=== PATIENT | male | born 1975 | race Caucasian/White ===

== ENCOUNTER 2024-03-05 20:59 | Emergency (ER) | payer SELFPAY ==
[2024-03-05] VITALS (23 sets, daily range): BP systolic 146–164; BP diastolic 102–110; PULSE 95–141; O2SAT 9–100; BMI 27.7
--- NOTE | 2024-03-05 21:17 | ECG_ITS ---
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
--- NOTE | 2024-03-05 21:19 | ED_ITS ---
Documented by User: NATALY Dee 03/05/24 21:29 HPI HPI - General Adult General Chief complaint: Shortness of Breath/Dyspnea Stated complaint: SHORTNESS OF BREATH Time Seen by Provider: 03/05/24 21:01 History of Present Illness HPI narrative: Is a 48-year-old male who presents to the emergency department for worsening shortness of breath that began abruptly about 1 hour ago. He states he was watching a movie when he felt profoundly short of breath and like he cannot catch his breath. He has had a mild cough and has felt mildly short of breath throughout the day. No fevers. He denies chest pain, vomiting, diarrhea, p eripheral edema. He denies any history of heart or lung problems. He states he occasionally smokes cigarettes and occasionally smokes marijuana. He has not brought up any sputum or hemoptysis. Related Data Allergies Allergy/AdvReac Type Severity Reaction Status Date / Time No Known Drug Allergies Allergy Verified 03/05/24 21:24 Opioid HPI Opioid Management Most Recent Opioid Data: No Data to Display Review of Systems ROS Constitutional Denies: fever or chills Ears, nose, mouth, and throat Reports: nasal congestion; Denies: throat pain Cardiovascular Denies: chest pain Respiratory Reports: shortness of breath and cough Gastrointestinal Denies: nausea, vomiting or diarrhea Musculoskeletal Denies: back pain Integumentary/Breast Denies: rash Hematologic/Lymphatic Denies: easy bruising or easy bleeding Exam Narrative Exam Narrative: Gen.: Awake, alert, Hyperventilating Head: Normocephalic, atraumatic ENT: Moist mucous membranes Respiratory: No respiratory distress, lungs clear bilaterally; No wheezing or rhonchi Cardio: Tachycardic, regular Gastrointestinal: Abdomen is soft, nondistended and nontender to palpation Extremities: Moves extremities equally, no pedal edema Psych: Normal mood and affect Neuro: No focal neuro deficit Skin: Warm, dry, intact Constitutional Vital Signs, click to edit/add: Last Vital Signs Pulse 122 H 03/05/24 21:46 Resp 22 H 03/05/24 21:46 BP 164/103 H 03/05/24 21:12 Pulse Ox 99 03/05/24 21:32 O2 Del Method Room Air 03/05/24 21:24 O2 Flow Rate 4 03/05/24 21:32 Course Vital Signs Vital signs: Vital Signs Pulse Rate 139 H 03/05/24 21:12 Respiratory Rate 32 H 03/05/24 21:12 Blood Pressure 164/103 H 03/05/24 21:12 Pulse Oximetry 99 03/05/24 21:12 Oxygen Delivery Method Room Air 03/05/24 21:12 Pulse Rate 122 H 03/05/24 21:46 Respiratory Rate 22 H 03/05/24 21:46 Blood Pressure 164/103 H 03/05/24 21:12 Pulse Oximetry 99 03/05/24 21:32 Oxygen Delivery Method Room Air 03/05/24 21:24 Oxygen Delivery Flow Rate 4 03/05/24 21:32 Medical Decision Making MDM Narrative Medical decision making narrative: 2127: Patient noted to be hyperventilating, tachypnea noted on exam with no wheezing and normal oxygen saturation. He was noted to have cramping of his hands and reported tingling all over. He was placed on a nasal cannula for comfort and instructed to slow his breathing. Ativan, IV fluids, Solu-Medrol and breathing treatment ordered in addition to a sepsis lab set. Based on the patient's clinical presentation, he is sent for CT angio of the chest. Case is turned over at this time to attending physician for disposition. Medical Records Medical records reviewed: Yes I reviewed the patient's medical records Lab Data Lab results reviewed: Yes I reviewed the patient's lab results Labs: Lab Results 03/05/24 03/05/24 03/05/24 Range/Units 21:25 21:42 21:48 WBC 8.6 (4.0-11.0) 10^3/uL RBC 5.36 (4.70-6.10) 10^6/uL Hgb 16.6 (14.0-18.0) g/dL Hct 48.1 (42.0-54.0) % MCV 89.7 (80.0-94.0) fL MCH 31.0 (25.9-34.0) pg MCHC 34.5 (29.9-35.2) g/dL RDW 12.2 (11.0-15.0) % Plt Count 338 (150-450) 10^3/uL MPV 9.9 (9.5-13.5) fL Neut % (Auto) 50.3 (43.0-75.0) % Lymph % (Auto) 37.2 (20.5-60.0) % King % (Auto) 10.7 (1.7-12.0) % Eos % (Auto) 1.4 (0.9-7.0) % Baso % (Auto) 0.3 (0.2-2.0) % Neut # (Auto) 4.3 (1.4-6.5) 10^3/uL Lymph # (Auto) 3.2 (1.2-3.8) 10^3/uL King # (Auto) 0.9 H (0.3-0.8) 10^3/uL Eos # (Auto) 0.1 (0.0-0.7) 10^3/uL Baso # (Auto) 0.0 (0.0-0.1) 10^3/uL Abs Immat Gran (auto) 0.01 (0.00-0.03) 10^3/uL Imm/Tot Granulo (auto) 0.1 (0.0-0.5) % PT 10.2 (9.0-11.6) sec INR 0.96 VBG pH 7.692 H (7.330-7.430) VBG pCO2 16.1 L (40.0-52.0) mmHg Sodium 137 (136-145) mmol/L Potassium 3.7 (3.5-5.1) mmol/L Chloride 98 (98-107) mmol/L Carbon Dioxide 22.7 (21.0-32.0) mmol/L Anion Gap 20.0 BUN 5.0 L (7.0-18.0) mg/dL Creatinine 0.90 (0.70-1.30) mg/dL Est GFR ( Amer) >60 (>=60) Est GFR (Non-Af Amer) >60 (>=60) BUN/Creatinine Ratio 5.6 Glucose 109 H (74-106) mg/dL Lactate 5.8 H* (0.4-2.0) mmol/L Calcium 9.8 (8.5-10.1) mg/dL Magnesium 1.9 (1.8-2.4) mg/dL Total Bilirubin 0.7 (0.2-1.0) mg/dL AST 101 H (15-37) U/L ALT 113 H (16-63) U/L Alkaline Phosphatase 83 (46-116) U/L Troponin I High Sens 8.6 (4.0-76.1) pg/mL NT-Pro-B Natriuret Pep 24.0 (<=450.0) pg/mL Total Protein 8.5 H (6.4-8.2) g/dL Albumin 4.2 (3.4-5.0) g/dL Globulin 4.3 g/dL Albumin/Globulin Ratio 1.0 Procalcitonin <0.05 (0.00-0.50) ng/mL TSH 2.658 (0.358-3.740) uIU/mL Adenovirus (PCR) Not detected (NOT DETECTE) B. pertussis DNA (PCR) Not detected (NOT DETECTE) B.parapertussis DNA PCR Not detected (NOT DETECTE) C. pneumoniae DNA (PCR) Not detected (NOT DETECTE) Coronavirus Type OC43 Not detected (NOT DETECTE) Coronavirus Type HKU1 Not detected (NOT DETECTE) Coronavirus Type 229E Not detected (NOT DETECTE) Coronavirus Type NL63 Not detected (NOT DETECTE) Human Metapneumovir PCR Not detected (NOT DETECTE) Influenza Type A (PCR) Not detected (NOT DETECTE) Influenza Type B (PCR) Not detected (NOT DETECTE) M. pneumoniae (PCR) Not detected (NOT DETECTE) Parainfluenza PCR Not detected (NOT DETECTE) Parainfluenza 2 (PCR) Not detected (NOT DETECTE) Parainfluenza 3 (PCR) Not detected (NOT DETECTE) Parainfluenza 4 (PCR) Not detected (NOT DETECTE) RSV (RT-PCR) Not detected (NOT DETECTE) Entero/Rhino (PCR) Not detected (NOT DETECTE) SARS-CoV-2 (PCR) Not detected (NOT DETECTE) ECG Data Attestation: I personally reviewed and interpreted this ECG as follows: (Sinus tachycardia at a rate of 133, no acute ST elevation or ectopy. EKG reviewed by attending physician) Discharge Plan Discharge Stand Alone Forms: Portal Instructions Chief Complaint: Shortness of Breath/Dyspnea Clinical Impression: Acute dyspnea, Pulmonary nodule, Acute hyperventilation Patient Disposition: Home, Self-Care Time of Disposition Decision: 00:45 Condition: Good Print Language: Andorran Instructions: Asthma (ED), Hyperventilation (ED), Dyspnea (ED), Pulmonary Nodules (ED) Referrals: Physician,Non-Staff, [Primary Care Provider] - 1 week Documented by User: Ita Sanchez MD 03/06/24 00:45 HPI HPI - General Adult General Chief complaint: Shortness of Breath/Dyspnea Stated complaint: SHORTNESS OF BREATH Time Seen by Provider: 03/05/24 21:01 History of Present Illness HPI narrative: Is a 48-year-old male who presents to the emergency department for worsening shortness of breath that began abruptly about 1 hour ago. He states he was watching a movie when he felt profoundly short of breath and like he cannot catch his breath. He has had a mild cough and has felt mildly short of breath throughout the day. No fevers. He denies chest pain, vomiting, diarrhea, peripheral edema. He denies any history of heart or lung problems. He states he occasionally smokes cigarettes and occasionally smokes marijuana. He has not brought up any sputum or hemoptysis. Upon arrival he was extremely anxious with carpopedal spasm and tachycardia. An IV was placed and he was medicated with IV fluids, Toradol, Ativan, Solu-Medrol and given a breathing treatment. On reevaluation he was resting comfortably. His pulse has improved and at the time of this dictation is at 95. CT angio of the chest was ordered and shows a small nodule in the right lower lobe but otherwise no acute findings. This was discussed with the patient who verbalizes understanding but states he still feels like he cannot get a complete breath. He will be given an additional breathing treatment. I anticipate he will be able to be discharged home. I did discuss smoking cessation with him. He will be discharged home with a Medrol Dosepak and albuterol inhaler prescriptions. Related Data Allergies Allergy/AdvReac Type Severity Reaction Status Date / Time No Known Drug Allergies Allergy Verified 03/05/24 21:24 Opioid HPI Opioid Management Most Recent Opioid Data: No Data to Display Exam Constitutional Vital Signs, click to edit/add: Last Vital Signs Pulse 122 H 03/05/24 21:46 Resp 22 H 03/05/24 21:46 BP 164/103 H 03/05/24 21:12 Pulse Ox 99 03/05/24 21:32 O2 Del Method Room Air 03/05/24 21:24 O2 Flow Rate 4 03/05/24 21:32 Course Vital Signs Vital signs: Vital Signs Pulse Rate 139 H 03/05/24 21:12 Respiratory Rate 32 H 03/05/24 21:12 Blood Pressure 164/103 H 03/05/24 21:12 Pulse Oximetry 99 03/05/24 21:12 Oxygen Delivery Method Room Air 03/05/24 21:12 Pulse Rate 122 H 03/05/24 21:46 Respiratory Rate 22 H 03/05/24 21:46 Blood Pressure 164/103 H 03/05/24 21:12 Pulse Oximetry 99 03/05/24 21:32 Oxygen Delivery Method Room Air 03/05/24 21:24 Oxygen Delivery Flow Rate 4 03/05/24 21:32 Medical Decision Making MDM Narrative Medical decision making narrative: 2127: Patient noted to be hyperventilating, tachypnea noted on exam with no wheezing and normal oxygen saturation. He was noted to have cramping of his hands and reported tingling all over. He was placed on a nasal cannula for comfort and instructed to slow his breathing. Ativan, IV fluids, Solu-Medrol and breathing treatment ordered in addition to a sepsis lab set. Based on the patient's clinical presentation, he is sent for CT angio of the chest. Case is turned over at this time to attending physician for disposition. Medical Records Medical records narrative: [place] [address] CT Scan Report Signed Patient: KEL MCDONNELL MR#: [id number] : 1975 Acct:[id number] Age/Sex: 48 / M ADM Date: 03/05/24 Loc: ER Attending Dr: Ordering Physician: Mavis Dunham Date of Service: 03/05/24 Procedure(s): CT angio chest Accession Number(s): [id number] cc: Physician,Non-Staff M.D.~ [facility] [place] [address] Patient Name: KEL MCDONNELL MRN: [id number] date: 1975 Sex: M Assigned Patient Location: ER Current Patient Location: ER Accession/Order Number: [id number] Exam Date: 03/05/2024 22:55 Report Date: 03/06/2024 00:08 At the request of: MAVIS DUNHAM Procedure: CT angio chest EXAM: CT angio chest HISTORY: shortness of breath , congestion. Reported history of asthma. COMPARISON: Chest x-ray 07/08/2021 TECHNIQUE: Multiple axial views CTA chest angiogram chest performed after administration of 100 cc Omnipaque 350 IV contrast. Coronal sagittal reformats performed. MIPS and/or similar series performed. 3-D reconstruction of the vasculature performed. FINDINGS: No evidence for acute pulmonary embolism, thoracic aortic aneurysm, or thoracic aortic dissection. No enlarged heart size or large pericardial effusion. Central airway is patent. 8 mm irregular nodular opacity at the posterior right lower lobe (image 50 series 5). Mild mosaic attenuation of the bilateral lower lungs. No lobar lung consolidation, large pleural effusion, or pneumothorax. Small hiatal hernia. Severe hepatic steatosis. No acute bony abnormality. CT/CT angio chest IMPRESSION: No evidence for acute pulmonary embolism, thoracic aortic aneurysm, or thoracic aortic dissection. 8 mm irregular nodular lung opacity at the posterior right lower lobe (image 50 series 5). Finding reflects an irregular nodular inflammatory lung nodule versus an irregular neoplastic pulmonary nodule. Recommend short interval 2-[address] follow-up. Mild mosaic attenuation of the bilateral lower lungs reflecting sequela small reactive airway inflammation and/or airway trapping Severe hepatic steatosis. Electronically authenticated by: GUANAKITO LASSITER Date: 03/06/2024 00:08 Lab Data Labs: Lab Results 03/05/24 03/05/24 03/05/24 Range/Units 21:25 21:42 21:48 WBC 8.6 (4.0-11.0) 10^3/uL RBC 5.36 (4.70-6.10) 10^6/uL Hgb 16.6 (14.0-18.0) g/dL Hct 48.1 (42.0-54.0) % MCV 89.7 (80.0-94.0) fL MCH 31.0 (25.9-34.0) pg MCHC 34.5 (29.9-35.2) g/dL RDW 12.2 (11.0-15.0) % Plt Count 338 (150-450) 10^3/uL MPV 9.9 (9.5-13.5) fL Neut % (Auto) 50.3 (43.0-75.0) % Lymph % (Auto) 37.2 (20.5-60.0) % King % (Auto) 10.7 (1.7-12.0) % Eos % (Auto) 1.4 (0.9-7.0) % Baso % (Auto) 0.3 (0.2-2.0) % Neut # (Auto) 4.3 (1.4-6.5) 10^3/uL Lymph # (Auto) 3.2 (1.2-3.8) 10^3/uL King # (Auto) 0.9 H (0.3-0.8) 10^3/uL Eos # (Auto) 0.1 (0.0-0.7) 10^3/uL Baso # (Auto) 0.0 (0.0-0.1) 10^3/uL Abs Immat Gran (auto) 0.01 (0.00-0.03) 10^3/uL Imm/Tot Granulo (auto) 0.1 (0.0-0.5) % PT 10.2 (9.0-11.6) sec INR 0.96 VBG pH 7.692 H (7.330-7.430) VBG pCO2 16.1 L (40.0-52.0) mmHg Sodium 137 (136-145) mmol/L Potassium 3.7 (3.5-5.1) mmol/L Chloride 98 (98-107) mmol/L Carbon Dioxide 22.7 (21.0-32.0) mmol/L Anion Gap 20.0 BUN 5.0 L (7.0-18.0) mg/dL Creatinine 0.90 (0.70-1.30) mg/dL Est GFR ( Amer) >60 (>=60) Est GFR (Non-Af Amer) >60 (>=60) BUN/Creatinine Ratio 5.6 Glucose 109 H (74-106) mg/dL Lactate 5.8 H* (0.4-2.0) mmol/L Calcium 9.8 (8.5-10.1) mg/dL Magnesium 1.9 (1.8-2.4) mg/dL Total Bilirubin 0.7 (0.2-1.0) mg/dL AST 101 H (15-37) U/L ALT 113 H (16-63) U/L Alkaline Phosphatase 83 (46-116) U/L Troponin I High Sens 8.6 (4.0-76.1) pg/mL NT-Pro-B Natriuret Pep 24.0 (<=450.0) pg/mL Total Protein 8.5 H (6.4-8.2) g/dL Albumin 4.2 (3.4-5.0) g/dL Globulin 4.3 g/dL Albumin/Globulin Ratio 1.0 Procalcitonin <0.05 (0.00-0.50) ng/mL TSH 2.658 (0.358-3.740) uIU/mL Adenovirus (PCR) Not detected (NOT DETECTE) B. pertussis DNA (PCR) Not detected (NOT DETECTE) B.parapertussis DNA PCR Not detected (NOT DETECTE) C. pneumoniae DNA (PCR) Not detected (NOT DETECTE) Coronavirus Type OC43 Not detected (NOT DETECTE) Coronavirus Type HKU1 Not detected (NOT DETECTE) Coronavirus Type 229E Not detected (NOT DETECTE) Coronavirus Type NL63 Not detected (NOT DETECTE) Human Metapneumovir PCR Not detected (NOT DETECTE) Influenza Type A (PCR) Not detected (NOT DETECTE) Influenza Type B (PCR) Not detected (NOT DETECTE) M. pneumoniae (PCR) Not detected (NOT DETECTE) Parainfluenza PCR Not detected (NOT DETECTE) Parainfluenza 2 (PCR) Not detected (NOT DETECTE) Parainfluenza 3 (PCR) Not detected (NOT DETECTE) Parainfluenza 4 (PCR) Not detected (NOT DETECTE) RSV (RT-PCR) Not detected (NOT DETECTE) Entero/Rhino (PCR) Not detected (NOT DETECTE) SARS-CoV-2 (PCR) Not detected (NOT DETECTE) Discharge Plan Discharge Stand Alone Forms: Portal Instructions Chief Complaint: Shortness of Breath/Dyspnea Clinical Impression: Acute dyspnea, Pulmonary nodule, Acute hyperventilation Patient Disposition: Home, Self-Care Time of Disposition Decision: 00:45 Condition: Good Print Language: Andorran Instructions: Asthma (ED), Hyperventilation (ED), Dyspnea (ED), Pulmonary Nodules (ED) Referrals: Physician,Non-Staff, MD [Primary Care Provider] - 1 week
[2024-03-05 21:31] LABS: Basophils Percent Auto 0.3 % (0.2-2.0); Eosinophils Absolute Auto 0.1 10^3/uL (0.0-0.7); Eosinophils Percent Auto 1.4 % (0.9-7.0); Hematocrit 48.1 % (42.0-54.0); Hemoglobin 16.6 g/dL (14.0-18.0); Immature Granulocytes Abs Auto 0.01 10^3/uL (0.00-0.03); Immature Granulocytes Pct Auto 0.1 % (0.0-0.5); Lymphocytes Absolute Auto 3.2 10^3/uL (1.2-3.8); Lymphocytes Percent Auto 37.2 % (20.5-60.0); Mean Corpuscular HGB Conc 34.5 g/dL (29.9-35.2); Mean Corpuscular Volume 89.7 fL (80.0-94.0); Mean Platelet Volume 9.9 fL (9.5-13.5); Monocytes Absolute Auto 0.9 10^3/uL (0.3-0.8); Monocytes Percent Auto 10.7 % (1.7-12.0); Neutrophils Absolute Auto 4.3 10^3/uL (1.4-6.5); Neutrophils Percent Auto 50.3 % (43.0-75.0); Platelet Count 338 10^3/uL (150-450); Red Blood Count 5.36 10^6/uL (4.70-6.10); Red Cell Distribution Width 12.2 % (11.0-15.0); White Blood Count 8.6 10^3/uL (4.0-11.0)
[2024-03-05] MEDS: LORAZEPAM 2 MG/ML VIAL 1 MG IV (21:35)
[2024-03-05] MEDS: ALBUTEROL SULFATE 2.5 MG/3 ML VIAL NEB IH (21:36)
[2024-03-05] MEDS: 0.9 % SODIUM CHLORIDE 1,000 ML 1000 ML IV (21:42)
[2024-03-05] MEDS: METHYLPREDNISOLONE SOD SUCC PF 125 MG/2 ML VIAL IVP (21:42)
[2024-03-05 21:45] LABS: INR 0.96; Prothrombin Time 10.2 sec (9.0-11.6)
[2024-03-05 21:53] LABS: Lactate/Lactic Acid 5.8 mmol/L (0.4-2.0)
[2024-03-05 21:57] LABS: Alanine Aminotransferase 113 U/L (16-63); Albumin Level 4.2 g/dL (3.4-5.0); Alkaline Phosphatase 83 U/L (46-116); Aspartate Amino Transferase 101 U/L (15-37); BUN Creatinine Ratio 5.6; Bilirubin Total 0.7 mg/dL (0.2-1.0); Calcium 9.8 mg/dL (8.5-10.1); Carbon Dioxide 22.7 mmol/L (21.0-32.0); Chloride 98 mmol/L (98-107); Estimated GFR (African America >60 (>=60); Estimated GFR (Non-African Ame >60 (>=60); Globulin 4.3 g/dL; Glucose 109 mg/dL (74-106); Magnesium 1.9 mg/dL (1.8-2.4); Potassium 3.7 mmol/L (3.5-5.1); Sodium 137 mmol/L (136-145); Thyroid Stimulating Hormone 2.658 uIU/mL (0.358-3.740); Total Protein 8.5 g/dL (6.4-8.2); Troponin I High Sensitivity 8.6 pg/mL (4.0-76.1)
[2024-03-05 22:00] LABS: Adenovirus NOT DETECTED (NOT DETECTE); Bordetella parapertussis NOT DETECTED (NOT DETECTE); Coronavirus 229E NOT DETECTED (NOT DETECTE); Coronavirus HKU1 NOT DETECTED (NOT DETECTE); Coronavirus NL63 NOT DETECTED (NOT DETECTE); Coronavirus OC43 NOT DETECTED (NOT DETECTE); Human Metapneumovirus NOT DETECTED (NOT DETECTE); Human Rhinovirus/Enterovirus NOT DETECTED (NOT DETECTE); Influenza A NOT DETECTED (NOT DETECTE); Influenza B NOT DETECTED (NOT DETECTE); Mycoplasma pneumoniae NOT DETECTED (NOT DETECTE); Parainfluenza Virus 1 NOT DETECTED (NOT DETECTE); Parainfluenza Virus 2 NOT DETECTED (NOT DETECTE); Parainfluenza Virus 3 NOT DETECTED (NOT DETECTE); Parainfluenza Virus 4 NOT DETECTED (NOT DETECTE); Respiratory Syncytial Virus NOT DETECTED (NOT DETECTE); SARS-CoV-2 NOT DETECTED (NOT DETECTE)
[2024-03-05 22:01] LABS: PCO2 VBG 16.1 mmHg (40.0-52.0); pH VBG 7.692 (7.330-7.430)
[2024-03-05 22:31] LABS: PROCALCITONIN <0.05 ng/mL (0.00-0.50)
--- NOTE | 2024-03-05 22:58 | CT_ITS ---
The [address] [address] Patient Name: KEL MCDONNELL MRN: [id number] date: 1975 Sex: M Assigned Patient Location: ER Current Patient Location: ER Accession/Order Number: [id number] Exam Date: 03/05/2024 22:55 Report Date: 03/06/2024 00:08 At the request of: MAVIS DUNHAM Procedure: CT angio chest EXAM: CT angio chest HISTORY: shortness of breath , congestion. Reported history of asthma. COMPARISON: Chest x-ray 07/08/2021 TECHNIQUE: Multiple axial views CTA chest angiogram chest performed after administration of 100 cc Omnipaque 350 IV contrast. Coronal sagittal reformats performed. MIPS and/or similar series performed. 3-D reconstruction of the vasculature performed. FINDINGS: No evidence for acute pulmonary embolism, thoracic aortic aneurysm, or thoracic aortic dissection. No enlarged heart size or large pericardial effusion. Central airway is patent. 8 mm irregular nodular opacity at the posterior right lower lobe (image 50 series 5). Mild mosaic attenuation of the bilateral lower lungs. No lobar lung consolidation, large pleural effusion, or pneumothorax. Small hiatal hernia. Severe hepatic steatosis. No acute bony abnormality. CT/CT angio chest IMPRESSION: No evidence for acute pulmonary embolism, thoracic aortic aneurysm, or thoracic aortic dissection. 8 mm irregular nodular lung opacity at the posterior right lower lobe (image 50 series 5). Finding reflects an irregular nodular inflammatory lung nodule versus an irregular neoplastic pulmonary nodule. Recommend short interval 2-[address] follow-up. Mild mosaic attenuation of the bilateral lower lungs reflecting sequela small reactive airway inflammation and/or airway trapping Severe hepatic steatosis. Electronically authenticated by: GUANAKITO LASSITER Date: 03/06/2024 00:08
[2024-03-06] VITALS (13 sets, daily range): BP systolic 153–171; BP diastolic 104–110; PULSE 93–110; O2SAT 94–99
[2024-03-06] MEDS: 0.9 % SODIUM CHLORIDE 1,000 ML 1000 ML IV (00:01)
[2024-03-06] MEDS: ALBUTEROL SULFATE 2.5 MG/3 ML VIAL NEB IH (00:50)
== END 2024-03-06 01:58 | disposition home or self-care (01) ==
PROVIDERS: Physician Assistant; Emergency Provider Emergency Medicine
DX: R06.4 Hyperventilation (principal); R06.00 Dyspnea, unspecified; R91.1 Solitary pulmonary nodule; F17.210 Nicotine dependence, cigarettes, uncomplicated; F12.90 Cannabis use, unspecified, uncomplicated; Z20.822 Contact with and (suspected) exposure to COVID-19
CPT/HCPCS: 0202U; 36415; 71275; 80053; 82800; 83605; 83735; 83880; 84145; 84443; 84484; 85025; 85610; 87040; 93005; 94640; 96374; 96375; 99285; J2919; Q9967

== ENCOUNTER 2024-03-06 21:13 | Emergency (ER) | payer SELFPAY ==
[2024-03-06] VITALS (8 sets, daily range): BP systolic 129–161; BP diastolic 91–124; PULSE 90–128; TEMP 36.9; O2SAT 98–100; BMI 28.2
--- OUTSIDE RECORDS SUMMARY | 2024-03-06 21:17 | XMS_ITS | CCD ---
Author Organization [facility] Inform ion Partnership [facility] Care Team Providers Care Revival Clerk Name Role Phone DR JHONATAN BUENO Admitting Unavailable MARCELO, DR BELTRAN Primary Care Unavailable DR JHONATAN BUENO Consulting Unavailable DR JHONATAN BUENO Attending Unavailable MINERVA PETERSON Consulting Unavailable MARCELO, DR BELTRAN Consulting Unavailable MARCELO, DR BELTRAN Attending Unavailable MARCELO, DR BELTRAN Admitting Unavailable MARCELO, DR BELTRAN Primary Care Unavailable Problems Active Problems Problem Classification Problem Date Documented Da te Episodic/Chronic Chronic obstructive pulmonary disease and bronchiectasis (1 source) Chronic obstructive pulmonary disease with (acute) exacerbation; Translations: [COPD WITH ACUTE EXACERBATION] Onset: 07-10-2021 Chronic Other lower respiratory disease (3 sources) Shortness of breath; Translations: [SHORTNESS OF BREATH] Onset: 07-09-2021 Episodic Residual codes; unclassified (1 source) Pain, unspecified; Translations: [PAIN UNSPECIFIED] Onset: 07-27-2021 Episodic Residual codes; unclassified (1 source) Chills (without fever); Translations: [CHILLS WITHOUT FEVER] Onset: 07-27-2021 Episodic Substance-related disorders (1 source) Nicotine dependence, cigarettes, uncomplicated; Translations: [NICOTINE DEPEND CIGARETTES UNCOMP] Onset: 07-10-2021 Chronic Unclassified (3 sources) CONTACT W/AND (SUSP) EXPOS COVID-19; Translations: [CONTACT W/AND (SUSP) EXPOS COVID-19] Onset: 07-10-2021 Viral infection (1 source) COVID-19; Translations: [COVID-19] Onset: 07-27-2021 Past or Other Problems Problem Classification Problem Date Documented Da te Episodic/Chronic Unclassified (1 source) CONTACT W/AND (SUSP) EXPOS COVID-19; Translations: [CONTACT W/AND (SUSP) EXPOS COVID-19] Onset: 10-12-2021 Results Test Name Value Interpretation Reference Range Facility Covid-19 PCR (CVDTB)on 07-11 SARS-CoV-2 (COVID-19) RNA YANELIS+probe Ql (Unsp spec) Detected Critically abnormal NOT DETECTED [facility] Comment on above: Result Comment: This test is not yet approved or cleared by the [place] FDA. When there are no FDA-approved or cleared tests available, and other criteria are met, FDA can make tests available under an emergency access mechanism called an Emergency Use Authorization (EUA). The EUA for this test is supported by the Quality Liaison of Health and Human Service's (HHS's) declaration that circumstances exist to justify the emergency use of in vitro diagnostics for the detection and/or diagnosis of the virus that causes COVID-19. This EUA will remain in effect (meaning this test can be used) for the duration of the COVID-19 declaration justifying emergency of IVDs, unless it is terminated or revoked by FDA (after which the test may no longer be used). Performed By: #### C VDTBH #### [facility] [address] [place] [address] Dr. Darin Flanagan CBC AUTO DIFFon 07-09-2021 BASO # 0.1 103/ul Normal 0.0-0.1 [facility] Comment on above: Performed By: #### C BC #### [facility] [address] [place] [address] Dr. Darin Flanagan Basophils/100 WBC (Bld) 0.7 % Normal 0.2-2.0 [facility] Comment on above: Performed By: #### C BC #### [facility] [address] [place] [address] Dr. Darin Flanagan EO # 0.3 103/ul Normal 0.0-0.7 [facility] Comment on above: Performed By: #### C BC #### [facility] [address] [place] [address] Dr. Darin Flanagan Eosinophils/100 WBC (Bld) 4.9 % Normal 0.9-7.0 [facility] Comment on above: Performed By: #### C BC #### [facility] [address] [place] [address] Dr. Darin Flanagan Erythrocyte distribution width (RBC) [Ratio] 12.1 % Normal 11.0-15.0 [facility] Comment on above: Performed By: #### C BC #### [facility] [address] [place] [address] Dr. Darin Flanagan Hematocrit (Bld) [Volume fraction] 44.4 % Normal 42.0-54.0 [facility] Comment on above: Performed By: #### C BC #### [facility] [address] [place] [address] Dr. Darin Flanagan Hemoglobin (Bld) [Mass/Vol] 15.5 g/dL Normal 14.0-18.0 [facility] Comment on above: Performed By: #### C BC #### [facility] [address] [place] [address] Dr. Darin Flanagan IG # 0.01 10e3/ul Normal 0.00-0.03 [facility] Comment on above: Performed By: #### C BC #### [facility] [address] [place] [address] Dr. Darin Flanagan IG % 0.1 % Normal 0.0-0.5 [facility] Comment on above: Performed By: #### C BC #### [facility] [address] [place] [address] Dr. Darin Flanagan LYMPH # 2.0 103/ul Normal 1.2-3.8 [facility] Comment on above: Performed By: #### C BC #### [facility] [address] [place] [address] Dr. Darin Flanagan Lymphocytes/100 WBC (Bld) 29.9 % Normal 20.5-60.0 [facility] Comment on above: Performed By: #### C BC #### [facility] [address] [place] [address] Dr. Darin Flanagan MANUAL DIFF REQ NO Normal [facility] Comment on above: Performed By: #### C BC #### [facility] [address] [place] [address] Dr. Darin Flanagan MCH (RBC) [Entitic mass] 31.8 pg Normal 25.9-34.0 [facility] Comment on above: Performed By: #### C BC #### [facility] [address] [place] [address] Dr. Darin Flanagan MCHC (RBC) [Mass/Vol] 34.9 g/dL Normal 29.9-35.2 [facility] Comment on above: Performed By: #### C BC #### [facility] [address] [place] [address] Dr. Darin Flanagan MCV (RBC) [Entitic vol] 91.2 fL Normal 80.0-94.0 [facility] Comment on above: Performed By: #### C BC #### [facility] [address] [place] [address] Dr. Darin Flanagan MONO # 0.8 103/ul Normal 0.3-0.8 [facility] Comment on above: Performed By: #### C BC #### [facility] [address] [place] [address] Dr. Darin Flanagan Monocytes/100 WBC (Bld) 12.1 % Critically high 1.7-12.0 [facility] Comment on above: Performed By: #### C BC #### [facility] [address] [place] [address] Dr. Darin Flanagan NEUT # 3.6 103/ul Normal 1.4-6.5 [facility] Comment on above: Performed By: #### C BC #### [facility] [address] [place] [address] Dr. Darin Flanagan Neutrophils/100 WBC (Bld) 52.3 % Normal 43.0-75.0 [facility] Comment on above: Performed By: #### C BC #### [facility] [address] [place] [address] Dr. Darin Flanagan Platelet mean volume (Bld) [Entitic vol] 10.3 fL Normal 9.5-13.5 [facility] Comment on above: Performed By: #### C BC #### [facility] [address] [place] [address] Dr. Darin Flanagan PLT 269 103/ul Normal 150-450 [facility] Comment on above: Performed By: #### C BC #### [facility] [address] [place], [place] [id number] Dr. Darin Flanagan RBC 4.87 106/ul Normal 4.70-6.10 [facility] Comment on above: Performed By: #### C BC #### [facility] [address] [place], [place] [address] Dr. Darin Flanagan WBC 6.8 103/ul Normal 4.0-11.0 [facility] Comment on above: Performed By: #### C BC #### [facility] [address] [place], [place] [address] Dr. Darin Flanagan Covid-19 PCR ([facility])on 06-12 SARS-CoV-2 (COVID-19) RNA YANELIS+probe Ql (Unsp spec) Not detected Normal NOT DETECTED [facility] Comment on above: Result Comment: This test is not yet approved or cleared by the [place] FDA. When there are no FDA-approved or cleared tests available, and other criteria are met, FDA can make tests available under an emergency access mechanism called an Emergency Use Authorization (EUA). The EUA for this test is supported by the Quality Liaison of Health and Human Service's (HHS's) declaration that circumstances exist to justify the emergency use of in vitro diagnostics for the detection and/or diagnosis of the virus that causes COVID-19. This EUA will remain in effect (meaning this test can be used) for the duration of the COVID-19 declaration justifying emergency of IVDs, unless it is terminated or revoked by FDA (after which the test may no longer be used). When diagnostic testing is negative, the possibility of a false negative should be considered in the context of a patient's recent exposures and the presence of clinical signs and symptoms consistent with SARS-CoV-2. Performed By: #### C VDAGS, CVDTBH #### [facility] [address] [place], [place] [address] Dr. Darin Flanagan PROF 14(COMP METB)on 021 Albumin [Mass/Vol] 3.8 g/dL Normal 3.5-5.0 [facility] Comment on above: Performed By: #### C MP #### [facility] [address] [address] [address] Darin Flanagan Albumin/Globulin [Mass ratio] 1.0 {ratio} Normal [facility] Comment on above: Performed By: #### C MP #### [facility] [address] [address] [address] Darin Flanagan ALP [Catalytic activity/Vol] 68 U/L Normal 38-126 [facility] Comment on above: Performed By: #### C MP #### [facility] [address] [address] [address] Darin Flanagan ALT [Catalytic activity/Vol] 86 U/L Critically high 21-72 [facility] Comment on above: Performed By: #### C MP #### [facility] [address] [place] [address] Dr. Darin Flanagan Anion gap [Moles/Vol] 14.1 mmol/L Normal [facility] Comment on above: Performed By: #### C MP #### [facility] [address] [address] [address] Darin Flanagan AST [Catalytic activity/Vol] 45 U/L Normal 17-59 [facility] Comment on above: Performed By: #### C MP #### [facility] [address] [address] [address] Darin Flanagan Bilirubin [Mass/Vol] 0.3 mg/dL Normal 0.2-1.3 [facility] Comment on above: Performed By: #### C MP #### [facility] [address] [address] [address] Darin Flanagan Calcium [Mass/Vol] 9.1 mg/dL Normal 8.4-10.2 [facility] Comment on above: Performed By: #### C MP #### [facility] [address] [address] [address] Darin Flanagan Chloride [Moles/Vol] 104 mmol/L Normal 98-107 [facility] Comment on above: Performed By: #### C MP #### [facility] [address] [address] [address] Darin Flanagan CO2 [Moles/Vol] 24.1 mmol/L Normal 22.0-30.0 [facility] Comment on above: Performed By: #### C MP #### [facility] [address] [address] [address] Darin Flanagan Creatinine [Mass/Vol] 0.80 mg/dL Normal 0.66-1.25 [facility] Comment on above: Performed By: #### C MP #### [facility] [address] [address] [address] Darin Flanagan EGFR-AF ARMENIAN >60 Normal >=60 [facility] Comment on above: Performed By: #### C MP #### [facility] [address] [place] [address] Dr. Darin Flanagan EGFR-NON AF ARMENIAN >60 Normal >=60 [facility] Comment on above: Performed By: #### C MP #### [facility] [address] [place] [address] Dr. Darin Flanagan Globulin (S) [Mass/Vol] 3.7 g/dL Normal [facility] Comment on above: Performed By: #### C MP #### [facility] [address] [place] [address] Dr. Darin Flanagan Glucose [Mass/Vol] 104 mg/dL Normal 74-106 [facility] Comment on above: Performed By: #### C MP #### [facility] [address] [place] [address] Dr. Darin Flanagan Potassium [Moles/Vol] 3.2 mmol/L Critically low 3.4-5.0 [facility] Comment on above: Performed By: #### C MP #### [facility] [address] [place] [address] Dr. Darin Flanagan Protein [Mass/Vol] 7.5 g/dL Normal 6.1-8.2 [facility] Comment on above: Performed By: #### C MP #### [facility] [address] [place] [address] Dr. Darin Flanagan Sodium [Moles/Vol] 139 mmol/L Normal 137-145 [facility] Comment on above: Performed By: #### C MP #### [facility] [address] [place] [address] Dr. Darin Flanagan Urea nitrogen [Mass/Vol] 11.0 mg/dL Normal 9.0-20.0 [facility] Comment on above: Performed By: #### C MP #### [facility] [address] [address] [address] Darin Flanagan Urea nitrogen/Creatinin e [Mass ratio] 13.8 mg/mg Normal [facility] Comment on above: Performed By: #### C MP #### [facility] [address] [place] [address] Dr. Darin Flanagan SYMPTOMATIC COVID-19 ANTIGEN on 07-09-2021 EUA Statement SEE BELOW Normal [facility] Comment on above: Result Comment: This test has not been FDA cleared or approved, but has been authorized by the FDA under an Emergency Use Authorization (EUA) for use by authorized laboratories certified under CLIA that meet the requirements to perform moderate or high complexity testing. This test has been authorized only for the detection of proteins from SARS-CoV-2, not for any other viruses or pathogens. The emergency use of this test is authorized for the duration of the declaration that circumstances exist justifying the authorization of emergency use of in vitro diagnostic tests for detection and/or diagnosis of Covid-19 under section 564(b)(1) of the Act, 21 U.S.C. 360bbb-3(b)(1), unless the declaration is terminated or authorization is revoked sooner. Performed By: #### C VDAGS, CVDTBH #### [facility] [address] [place] [address] Dr. Darin Flanagan SARS-CoV-2 (COVID-19) RNA YANELIS+probe Ql (Unsp spec) Negative Normal NEGATIVE [facility] Comment on above: Result Comment: CONF IRMATION BY PCR PENDING PER CDC GUIDELINES/ SYMPTOMATIC PATIENT. Performed By: #### C VDAGS, CVDTBH #### [facility] [address] [place] [address] Dr. Darin Flanagan XR CHEST 1 Von 07-09-2021 XR CHEST 1 V EXAM: XR CHEST 1 V HISTORY: SHORTNESS OF BREATH COMPARISON: Chest radiographs dated 08/25/2016. TECHNIQUE: One view of the chest was obtained. FINDINGS: The cardiac silhouette is normal in size. The lungs are clear. There is no significant pneumothorax or pleural effusion. No acute osseous abnormality is seen. IMPRESSION: 1. No acute cardiopulmonary abnormality. Electronically authenticated by: Christian PETERSON Date: 2021-07-08 23:55 Normal [facility] Encounters Encounter Date Encounter Type Care Provider Facility Start: 07-22-2021 End: 07-22-[address] RUBY ROBERTSON Facility:[facility] Start: 07-09-2021 End: 07-09-[address] JHONATAN BUENO Facility:[facility] Payers Date Payer Category Payer Unknown [id number] 1975 Unknown [id number] 1957 Unknown [id number] Summary Purpose Family History No Family History Records Found Advance Directives No Advanced Directives Records Found Additional Source Comments (unrecognized sect ion and content) No Status Records Found INFORMATION SOURCE (unrecogn ized section and content) DATE CREATED AUTHOR 07/27/2021 [facility] FOR RECORDS PERTAINING TO PATIENTS WHO ARE OR HAVE BEEN ENROLLED IN A CHEMICAL DEPENDENCY/SUBSTANCEABUSE PROGRAM, SOME INFORMATION MAY BE OMITTED. This clinical summary was aggregated from multiple sources. Caution should be exercised in using it in the provision of clinical care. This summary normalizes information from multiple sources, and as a consequence, information in this document may materially change the coding, format and clinical context of patient data. In addition, data may be omitted in some cases. CLINICAL DECISIONS SHOULD BE BASED ON THE PRIMARY CLINICAL RECORDS. [facility] [employer] provides no warranty or guarantee of the accuracy or completeness of information in this document.
--- NOTE | 2024-03-06 21:34 | XR_ITS ---
The [address] [address] Patient Name: KEL MCDONNELL MRN: [id number] date: 1975 Sex: M Assigned Patient Location: ER Current Patient Location: ER Accession/Order Number: [id number] Exam Date: 03/06/2024 23:00 Report Date: 03/06/2024 23:33 At the request of: MARÍA MARKER Procedure: XR chest 2V EXAM: XR soft tissue neck, XR chest 2V HISTORY: FB sensation rapid breathing. Feels like something is stuck in throat. COMPARISON: CTA chest, 03/05/2024. TECHNIQUE: AP and lateral soft tissue neck x-rays with frontal and lateral chest x-rays. FINDINGS: SOFT TISSUE NECK: The airway appears unremarkable. No radiopaque foreign body is seen. The epiglottis and prevertebral soft tissues appear normal. Several dental fillings are noted. Straightening of the normal cervical lordosis may be due to patient positioning or muscle spasm. Multilevel degenerative changes are seen in the mid and lower cervical spine. CHEST: No radiopaque foreign body is seen. The heart, mediastinum and pulmonary vascularity are within normal limits. The lungs and pleural spaces are clear. Chronic changes are noted in the right acromioclavicular joint with old healed right lateral rib fracture. XR/XR chest 2V IMPRESSION: 1. No radiopaque foreign body identified in the neck soft tissues or chest. No foreign body was visualized on yesterday's preceding CTA chest. 2. No acute soft tissue neck findings. 3. Nonacute chest. Electronically authenticated by: JUNE SOLORZANO Date: 03/06/2024 23:33
--- NOTE | 2024-03-06 21:34 | XR_ITS ---
The [address] [address] Patient Name: KEL MCDONNELL MRN: [id number] date: 1975 Sex: M Assigned Patient Location: ER Current Patient Location: ER Accession/Order Number: [id number] Exam Date: 03/06/2024 23:00 Report Date: 03/06/2024 23:33 At the request of: MARÍA MARKER Procedure: XR soft tissue neck EXAM: XR soft tissue neck, XR chest 2V HISTORY: FB sensation rapid breathing. Feels like something is stuck in throat. COMPARISON: CTA chest, 03/05/2024. TECHNIQUE: AP and lateral soft tissue neck x-rays with frontal and lateral chest x-rays. FINDINGS: SOFT TISSUE NECK: The airway appears unremarkable. No radiopaque foreign body is seen. The epiglottis and prevertebral soft tissues appear normal. Several dental fillings are noted. Straightening of the normal cervical lordosis may be due to patient positioning or muscle spasm. Multilevel degenerative changes are seen in the mid and lower cervical spine. CHEST: No radiopaque foreign body is seen. The heart, mediastinum and pulmonary vascularity are within normal limits. The lungs and pleural spaces are clear. Chronic changes are noted in the right acromioclavicular joint with old healed right lateral rib fracture. XR/XR soft tissue neck IMPRESSION: 1. No radiopaque foreign body identified in the neck soft tissues or chest. No foreign body was visualized on yesterday's preceding CTA chest. 2. No acute soft tissue neck findings. 3. Nonacute chest. Electronically authenticated by: JUNE SOLORZANO Date: 03/06/2024 23:33
--- NOTE | 2024-03-06 21:34 | ECG_ITS ---
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
[2024-03-06] MEDS: 0.9 % SODIUM CHLORIDE 1,000 ML 1000 ML IV (21:52)
[2024-03-06] MEDS: LORAZEPAM 2 MG/ML VIAL 1 MG IV (21:53)
--- NOTE | 2024-03-06 23:32 | ED.ANXIETY1 ---
HPI - Anxiety General Chief Complaint: Anxiety Stated Complaint: ANXIETY Time Seen by Provider: 03/06/24 21:23 Source: patient Mode of arrival: Wheelchair History of Present Illness HPI narrative: This 48-year-old male who is visiting family and lives in [place] presents for reevaluation of anxiety with the feeling that there is something in his throat that he cannot clear. He states he feels anxious like he is going to pass out. He was seen in this emergency department yesterday for the same symptoms as well as shortness of breath and a CT angiogram of the chest was ordered as well as a respiratory panel and cardiac workup due to his tachycardia and severe anxiety. CT scan did not show any pulmonary embolism, pneumonia or other notable abnormality besides a small pulmonary nodule. The patient was discharged home with albuterol MDI and Medrol Dosepak. He does have a history of vaping but is not a cigarette smoker according to him. He denies any alcohol use during the day today. He states that this evening he started feeling like he had something in his throat that he could not clear and again became extremely anxious and hysterical. Upon arrival he is tachycardic and hypertensive. He denies any chest pain. He denies using any illicit drugs. The patient is coughing and gagging himself. He is wondering if he has something going on with his sinuses although he blows his nose and nothing comes out and when he coughs it is dry. Related Data Allergies Allergy/AdvReac Type Severity Reaction Status Date / Time No Known Drug Allergies Allergy Verified 03/05/24 21:24 Review of Systems ROS Status of ROS 10 or more systems reviewed and unremarkable except as noted in history and below Exam Narrative Exam Narrative: Vital signs and Nursing Notes reviewed: Upon arrival the patient was tachycardic with a pulse of 128 blood pressure was elevated at 161/124, he is not hypoxic. General: Awake, flushed, tearful anxious middle-age male, he is lying on the stretcher with his eyes closed, no respiratory distress, he is speaking in complete sentences and at times he is coughing and gagging himself stating he feels like there is something caught in his throat. HEENT: Normocephalic atraumatic, mucous membranes are moist and pink, eyes are clear, normal conjunctiva, vision is grossly intact, posterior pharynx is normal in appearance. There is no pooling of secretions. There is no swelling of the tongue, uvula or pharyngeal soft tissues Neck: Supple, no meningeal signs, no anterior or posterior cervical lymphadenopathy. Trachea is midline. No stridor appreciated Chest: Lungs are clear to auscultation with good air entry, there is no wheezing rhonchi or rales appreciated no accessory muscle use, patient is speaking in complete sentences-no chest wall tenderness to palpation CVS: Regular rate and rhythm S1-S2, no murmurs rubs or gallops, pulses are brisk and equal bilaterally ABD: Soft, nondistended, nontender, no rebound guarding or rigidity, bowel sounds are normal, no pulsatile masses appreciated Extremities: Moving all extremities, no lower extremity tenderness or swelling noted, negative Homans' sign, pulses are brisk and equal bilaterally Skin: Normal in appearance without rash,pallor, petechiae or purpura Neuro: No focal deficits Psych: Anxious, tearful Constitutional Vital Signs, click to edit/add: Last Vital Signs Temp 98.4 F 03/06/24 21:19 Pulse 90 03/06/24 22:20 Resp 16 03/06/24 22:22 BP 129/91 03/06/24 22:31 Pulse Ox 98 03/06/24 21:50 O2 Del Method Room Air 03/06/24 21:19 Course Vital Signs Vital signs: Vital Signs Temperature 98.4 F 03/06/24 21:19 Pulse Rate 128 H 03/06/24 21:19 Respiratory Rate 28 H 03/06/24 21:19 Blood Pressure 161/124 H 03/06/24 21:19 Pulse Oximetry 100 03/06/24 21:19 Oxygen Delivery Method Room Air 03/06/24 21:19 Temperature 98.4 F 03/06/24 21:19 Pulse Rate 90 03/06/24 22:20 Respiratory Rate 16 03/06/24 22:22 Blood Pressure 129/91 03/06/24 22:31 Pulse Oximetry 98 03/06/24 21:50 Oxygen Delivery Method Room Air 03/06/24 21:19 MDM - Anxiety MDM Narrative Medical decision making narrative: This 48-year-old male who was seen yesterday for shortness of breath, found to be tachycardic and hypertensive upon arrival with severe anxiety and stating that he feels like he cannot take a deep breath and had a cardiac workup including CT angio of the chest, respiratory panel, cardiac workup including labs and was found to have a mosaic pattern in his lungs as well as a small pulmonary nodule presents for reevaluation. He states he feels like he has a lump in his throat that is keeping him from taking deep breaths. Upon arrival he is again extremely anxious, tearful, tachycardic and hypertensive. An EKG done upon arrival was sinus tachycardia 109 bpm with no acute changes. He was medicated with IV fluids and Ativan. Repeat two-view chest x-ray is negative for Acute findings and x-ray of the soft tissues of the neck is also negative for acute findings. The results of these studies were discussed with the patient. He is feeling better. His vital signs have improved. At the time of this dictation his pulse is 90, blood pressure is 129/91. He does keep making sounds like he is trying to cough up something from his lungs. He still feels like there is something in his throat but he was given a life saver to suck on and is tolerating it without difficulty. His lungs are clear. He admits that he is extremely anxious now because of the finding of the pulmonary nodule on his CT scan yesterday that he has lung cancer. I reiterated to him that the CT scan did not imply that the patient had lung cancer but did recommend close follow-up. He lives in [place] and will obtain a family physician for follow-up on the CT scan in the future. He will be discharged home with a short course of Ativan as his symptoms appear to be globus hystericus/anxiety related. Medical Records Medical records narrative: The [address] [address] XRay Report Signed Patient: KEL MCDONNELL MR#: [id number] : 1975 Acct:[id number] Age/Sex: 48 / M ADM Date: 03/06/24 Loc: ER Attending Dr: Ordering Physician: Ita Sanchez Date of Service: 03/06/24 Procedure(s): XR soft tissue neck Accession Number(s): [id number] cc: Ita Sanchez; Physician,Non-Staff M.D.~ The [address] [address] Patient Name: KEL MCDONNELL MRN: [id number] date: 1975 Sex: M Assigned Patient Location: ER Current Patient Location: ER Accession/Order Number: [id number] Exam Date: 03/06/2024 23:00 Report Date: 03/06/2024 23:33 At the request of: ITA MARKER Procedure: XR soft tissue neck EXAM: XR soft tissue neck, XR chest 2V HISTORY: FB sensation rapid breathing. Feels like something is stuck in throat. COMPARISON: CTA chest, 03/05/2024. TECHNIQUE: AP and lateral soft tissue neck x-rays with frontal and lateral chest x-rays. FINDINGS: SOFT TISSUE NECK: The airway appears unremarkable. No radiopaque foreign body is seen. The epiglottis and prevertebral soft tissues appear normal. Several dental fillings are noted. Straightening of the normal cervical lordosis may be due to patient positioning or muscle spasm. Multilevel degenerative changes are seen in the mid and lower cervical spine. CHEST: No radiopaque foreign body is seen. The heart, mediastinum and pulmonary vascularity are within normal limits. The lungs and pleural spaces are clear. Chronic changes are noted in the right acromioclavicular joint with old healed right lateral rib fracture. XR/XR soft tissue neck IMPRESSION: 1. No radiopaque foreign body identified in the neck soft tissues or chest. No foreign body was visualized on yesterday's preceding CTA chest. 2. No acute soft tissue neck findings. 3. Nonacute chest. Electronically authenticated by: JUNE SOLORZANO Date: 03/06/2024 23:33 [place] [address] CT Scan Report Signed Patient: KEL MCDONNELL MR#: [id number] : 1975 Acct:[id number] Age/Sex: 48 / M ADM Date: 03/05/24 Loc: ER Attending Dr: Ordering Physician: Mavis Dunham Date of Service: 03/05/24 Procedure(s): CT angio chest Accession Number(s): [id number] cc: Physician,Non-Staff M.Dana~ The [address] [address] Patient Name: KEL MCDONNELL MRN: [id number] date: 1975 Sex: M Assigned Patient Location: ER Current Patient Location: ER Accession/Order Number: [id number] Exam Date: 03/05/2024 22:55 Report Date: 03/06/2024 00:08 At the request of: MAVIS DUNHAM Procedure: CT angio chest EXAM: CT angio chest HISTORY: shortness of breath , congestion. Reported history of asthma. COMPARISON: Chest x-ray 07/08/2021 TECHNIQUE: Multiple axial views CTA chest angiogram chest performed after administration of 100 cc Omnipaque 350 IV contrast. Coronal sagittal reformats performed. MIPS and/or similar series performed. 3-D reconstruction of the vasculature performed. FINDINGS: No evidence for acute pulmonary embolism, thoracic aortic aneurysm, or thoracic aortic dissection. No enlarged heart size or large pericardial effusion. Central airway is patent. 8 mm irregular nodular opacity at the posterior right lower lobe (image 50 series 5). Mild mosaic attenuation of the bilateral lower lungs. No lobar lung consolidation, large pleural effusion, or pneumothorax. Small hiatal hernia. Severe hepatic steatosis. No acute bony abnormality. CT/CT angio chest IMPRESSION: No evidence for acute pulmonary embolism, thoracic aortic aneurysm, or thoracic aortic dissection. 8 mm irregular nodular lung opacity at the posterior right lower lobe (image 50 series 5). Finding reflects an irregular nodular inflammatory lung nodule versus an irregular neoplastic pulmonary nodule. Recommend short interval 2-[address] follow-up. Mild mosaic attenuation of the bilateral lower lungs reflecting sequela small reactive airway inflammation and/or airway trapping Severe hepatic steatosis. Electronically authenticated by: GUANAKITO LASSITER Date: 03/06/2024 00:08 Lab Data Attestation: I reviewed the patient's lab results. Lab results narrative: Labs are reviewed from yesterday's ER visit and are normal ECG Data Attestation: I personally reviewed and interpreted this ECG as follows: (Sinus tachycardia at 109 bpm, normal axis, normal intervals, no acute ST segment elevation or T wave inversion) Discharge Plan Discharge Stand Alone Forms: Portal Instructions Chief Complaint: Anxiety Clinical Impression: Globus pharyngeus, Hyperventilation, Acute anxiety Patient Disposition: Home, Self-Care Time of Disposition Decision: 00:21 Condition: Good Print Language: [place] Referrals: Physician,Non-Staff, MD [Primary Care Provider] - 1 week
== END 2024-03-07 00:48 | disposition home or self-care (01) ==
PROVIDERS: Emergency Provider Emergency Medicine
DX: F41.9 Anxiety disorder, unspecified (principal); F45.8 Other somatoform disorders; R06.4 Hyperventilation
CPT/HCPCS: 70360; 71046; 93005; 96374; 99284